=== PATIENT | male | born 1950 | race African-American/Black ===

== ENCOUNTER → 2017-06-08 | Outpatient (CLI) | payer MEDICARE, OTHER ==
[~2017-06-08] MED LIST: CORTISPORIN-TC10 M1 RIGHT EAR; GABAPENTIN800 MG PO; HYDROCODON-ACE1 EAC7 PO; HYDROCODON-ACE1 EAC9 PO; ULTRAM50 MG PO
== END | disposition home or self-care (01) ==
LOC: CDC 09:48
DX: M48.06 Spinal stenosis, lumbar region (principal)
CPT/HCPCS: 93000

== ENCOUNTER 2017-06-13 09:02 | Day surgery (SDC) | payer OTHER ==
[2017-06-13 10:10] VITALS: BP 149/90
[2017-06-13 15:30] VITALS: BP 124/70
[2017-06-13 16:22] VITALS: BP 134/81
== END 2017-06-13 16:43 | disposition home or self-care (01) ==
LOC: SDC
DX: M48.07 Spinal stenosis, lumbosacral region (principal); M48.06 Spinal stenosis, lumbar region; M54.17 Radiculopathy, lumbosacral region; M62.81 Muscle weakness (generalized); Z98.1 Arthrodesis status; M48.02 Spinal stenosis, cervical region; F17.210 Nicotine dependence, cigarettes, uncomplicated; M51.36 Other intervertebral disc degeneration, lumbar region; B18.2 Chronic viral hepatitis C; F32.9 Major depressive disorder, single episode, unspecified
CPT/HCPCS: 72020; 76000; 86850; 86900; 86901; 87641; 94640; J0131; J1100; J1170; J2250; J2405; J2710; J3010; J3370

== ENCOUNTER 2017-07-10 17:03 | Emergency (ER) | payer OTHER ==
[~2017-07-10] VITALS: Ht 165.1 cm; Wt 53.0 kg
[2017-07-10] MEDS ORDERED: ULTRAM50 MG PO (18:17)
[2017-07-10 18:31] VITALS: BP 128/69
== END 2017-07-10 18:43 | disposition home or self-care (01) ==
LOC: EME 17:03
DX: M54.9 Dorsalgia, unspecified (principal); F17.200 Nicotine dependence, unspecified, uncomplicated
CPT/HCPCS: 99281; 99284

== ENCOUNTER 2017-11-02 21:12 | Emergency (ER) | payer OTHER ==
[~2017-11-02] VITALS: Ht 167.6 cm; Wt 49.4 kg
[2017-11-03 06:00] VITALS: BP 112/73
== END 2017-11-03 06:34 | disposition home or self-care (01) ==
LOC: EME 21:12
DX: F10.10 Alcohol abuse, uncomplicated (principal); S80.212A Abrasion, left knee, initial encounter; S80.211A Abrasion, right knee, initial encounter; S00.81XA Abrasion of other part of head, initial encounter; Y09 Assault by unspecified means; Y93.01 Activity, walking, marching and hiking; F32.9 Major depressive disorder, single episode, unspecified; F17.200 Nicotine dependence, unspecified, uncomplicated
CPT/HCPCS: 70450; 70486; 99281; 99284